=== PATIENT | male | born 1990 | race Caucasian/White ===

== ENCOUNTER 2021-01-31 07:05 | Emergency (ER) | payer OTHER ==
[~2021-01-31] VITALS: Ht 172.7 cm; Wt 67.6 kg
[2021-01-31 07:20] VITALS: BP 131/88
--- NOTE | 2021-01-31 07:27 | NUR ---
Patient ambulated to bed 12. RN evaluating the patient at bedside.
--- NOTE | 2021-01-31 07:33 | NUR ---
geotechnical engineer at bedside.
--- NOTE | 2021-01-31 07:34 | NUR ---
30/M presents to ED with c/o right shoulder pain. Patient states he was at the gym this morning around 4am "bench pressing" and states he felt a sudden pain in his right shoulder. Patient states "I dislocated my shoulder before and it feels similar." Patient describes it as 8/10 sharp constant pain in the right shoulder, ROM limited due to pain. Patient has good equal pulses bilaterally, sensation equal bilaterally, able to move all 10 fingers appropriately.
[2021-01-31] MEDS ORDERED: ACETAMINOPHEN EXTRA STRENGTH 500 MG TAB PO ONE (07:40)
[2021-01-31] MEDS ORDERED: LID5T TP (07:42)
[2021-01-31] MEDS ORDERED: ACET-10509 PO (07:42)
--- NOTE | 2021-01-31 07:48 | NUR ---
Patient discharged with v/s stable. Written and verbal after care instructions given and explained. Patient alert, oriented and verbalized understanding of instructions. Ambulatory with steady gait. All questions addressed prior to discharge. ID band removed. Patient advised to follow up with PMD. Rx of Tylenol Extra Strength and Lidoderm Patch given. Patient educated on indication of medication including possible reaction and side effects. Opportunity to ask questions provided and answered.
[2021-01-31 07:50] VITALS: BP 131/88
--- NOTE | 2021-01-31 07:52 | NUR ---
SLING WAS PLACED ON PT'S RIGHT ARM. ERMD NOTIFIED.
== END 2021-01-31 07:48 | disposition home or self-care (01) ==
LOC: MED 07:05
DX: S46.011A Strain of muscle(s) and tendon(s) of the rotator cuff of right shoulder, initial encounter (principal); Z88.6 Allergy status to analgesic agent; X58.XXXA Exposure to other specified factors, initial encounter; Y93.89 Activity, other specified; Y92.89 Other specified places as the place of occurrence of the external cause; Y99.8 Other external cause status
CPT/HCPCS: 73030; 99283

== ENCOUNTER 2021-02-27 11:50 | Emergency (ER) | payer OTHER ==
[~2021-02-27] VITALS: Ht 172.7 cm; Wt 66.7 kg
[~2021-02-27 11:50] MED LIST: ACET-10509 PO; LID5T TP
[2021-02-27 12:12] VITALS: BP 135/90
[2021-02-27] MEDS ORDERED: ACET-10509 PO (13:18)
[2021-02-27] MEDS ORDERED: ACETAMINOPHEN 325 MG TAB PO ONE (13:20)
--- NOTE | 2021-02-27 13:28 | NUR ---
PT REFUSED TYLENOL MEDICATION. PT STATES "I TOLD HIM I DIDN'T WANT IT."
== END 2021-02-27 13:28 | disposition home or self-care (01) ==
LOC: MED 11:50
DX: M25.511 Pain in right shoulder (principal); Z76.5 Malingerer [conscious simulation]; Z88.5 Allergy status to narcotic agent; Z79.899 Other long term (current) drug therapy; Z88.8 Allergy status to other drugs, medicaments and biological substances; Z86.718 Personal history of other venous thrombosis and embolism
CPT/HCPCS: 73020; 99283